=== PATIENT | female | born 1940 | race Caucasian/White ===

== ENCOUNTER → 2016-06-08 | Outpatient (CLI) | payer OTHER, BC ==
[~2016-06-08] MED LIST: BREO ELLIPTA 11 EACH IH; CALCITRIOL0.25 MCG PO; CEFTIN 250250 MG/52 PO; CENTRUM SILVER1 EAC4 PO; DOXYCYCLINE 10100 MG PO; FLAGYL500 MG PO; PROAIR HFA8.5 GM INH; TUMS PO; XALATAN2.5 ML OPHTHALMIC; XANAX 0.25 MG0.25 MG PO
[2016-06-08 09:02] LABS: CREATININE 0.7 mg/dL (0.6-1.0)
== END ==
LOC: CAT 08:03
PROVIDERS: Specialist
DX: N13.30 Unspecified hydronephrosis (principal); M62.89 Other specified disorders of muscle; R10.32 Left lower quadrant pain; R10.9 Unspecified abdominal pain; Z90.49 Acquired absence of other specified parts of digestive tract; Z90.710 Acquired absence of both cervix and uterus

== ENCOUNTER → 2016-06-22 | Outpatient (CLI) | payer OTHER, BC ==
[2016-06-22 17:19] LABS: ABG SAMPLE TYPE ARTERIAL; BE(vivo) -0.2 mmol/L (-2 to +3); HCO3 24.3 mmol/L (22.0-26.0); LACTATE 0.98 mmol/L (0.5-2.0); O2(CT) 18.2 mL/dL (15.0-23.0); O2Hb 94.2 % (92.0-98.0); PCO2 39.2 mmHg (35.0-45.0); PO2 76.2 mmHg (80.0-100.0); STICK SITE L.BRACHIAL; sO2 95.4 % (92.0-98.0); tCO2 25.5 mmol/L (24.0-30.0)
== END ==
LOC: RAD 17:10
PROVIDERS: Internal Medicine
DX: J44.9 Chronic obstructive pulmonary disease, unspecified (principal)

== ENCOUNTER → 2016-12-07 | Outpatient (CLI) | payer OTHER, BC | LOC: RAD 01:02 | DX: Z12.31 Encounter for screening mammogram for malignant neoplasm of breast (principal) ==

== ENCOUNTER → 2017-12-08 | Outpatient (CLI) | payer OTHER, BC | LOC: RAD 02:42 | DX: Z12.31 Encounter for screening mammogram for malignant neoplasm of breast (principal) ==

== ENCOUNTER → 2018-12-22 | Outpatient (CLI) | payer OTHER, BC | LOC: RAD 12:55 | DX: Z12.31 Encounter for screening mammogram for malignant neoplasm of breast (principal) ==

== ENCOUNTER 2020-11-04 21:50 | Inpatient (IN) | payer OTHER, BC ==
[~2020-11-04] VITALS: Ht 154.9 cm; Wt 59.9 kg
[2020-11-04 23:58] VITALS: BP 197/83
[2020-11-05 00:15] LABS: BASOPHILS 0.4 % (0.0-2.0); HEMOGLOBIN 12.4 gm/dL (12.0-15.0); MCH 31.8 pg (26.0-34.0); MCHC 33.6 g/dL (28.0-37.0); MCV 94.7 fL (80.0-100.0); MONOCYTES 7.3 % (1.0-8.0); PLATELET COUNT 218 thou/uL (150-400); POLYS 77.3 % (36.0-66.0); RBC 3.91 mil/uL (4.20-5.00); RDW 14.2 % (10.5-14.5); WBC 7.8 thou/uL (4.0-11.0)
[2020-11-05 00:31] LABS: CALCIUM 8.7 mg/dL (8.5-10.1); CREATININE 0.7 mg/dL (0.6-1.0)
[2020-11-05 00:41] LABS: ALBUMIN 3.4 g/dL (3.4-5.0); TOTAL BILIRUBIN 0.2 mg/dL (0.2-1.0); TOTAL PROTEIN 6.8 g/dL (6.4-8.2)
[2020-11-05] MEDS ORDERED: FUROSEMIDE 20 M20 M1 PO (10:22)
[2020-11-05] MEDS ORDERED: ALPRAZOLAM 0.0.25 M1 PO (10:22)
[2020-11-05] MEDS ORDERED: VALSARTAN160 MG PO (10:22)
[2020-11-05] MEDS ORDERED: LOW DOSE ASPIRI81 M1 PO (10:23)
[2020-11-05 11:46] LABS: URINE BILIRUBIN NEGATIVE (Negative); URINE BLOOD TRACE (Negative); URINE CLARITY CLEAR; URINE COLOR YELLOW; URINE GLUCOSE-RANDOM* TRACE (Negative); URINE KETONES TRACE (Negative); URINE LEUKOCYTES-REFLEX NEGATIVE (Negative); URINE NITRITE-REFLEX NEGATIVE (Negative); URINE PROTEIN (DIPSTICK) NEGATIVE (Negative); URINE UROBILINOGEN 0.2 E.U./dl (0.2-1.0)
--- NOTE | 2020-11-05 17:35 | NUR ---
SISTER- JENNY BUCKNER [phone]
[2020-11-06 05:09] LABS: ABSOLUTE NEUTROPHILS 7.1 thou/uL (1.4-8.2); BASOPHILS 0.2 % (0.0-2.0); HEMATOCRIT 30.3 % (37.0-47.0); MCH 32.2 pg (26.0-34.0); MCHC 33.9 g/dL (28.0-37.0); MCV 94.9 fL (80.0-100.0); MONOCYTES 1.7 % (1.0-8.0); PLATELET COUNT 196 thou/uL (150-400); POLYS 92.1 % (36.0-66.0); RDW 14.5 % (10.5-14.5); WBC 7.8 thou/uL (4.0-11.0)
[2020-11-06 05:26] LABS: CALCIUM 8.4 mg/dL (8.5-10.1); CREATININE 0.7 mg/dL (0.6-1.0); POTASSIUM 4.1 mmol/L (3.5-5.1)
[2020-11-06 05:42] LABS: HEMOGLOBIN 10.3 gm/dL (12.0-15.0)
[2020-11-06 09:16] VITALS: BP 143/68
--- NOTE | 2020-11-06 14:24 | NUR ---
DR. MIXON HERE TO EXAMINE PATIENT.
[2020-11-06 19:00] VITALS: BP 156/69
[2020-11-07 02:51] LABS: HEMATOCRIT 30.9 % (37.0-47.0); HEMOGLOBIN 10.5 gm/dL (12.0-15.0); MCH 32.1 pg (26.0-34.0); MCHC 34.1 g/dL (28.0-37.0); MCV 94.2 fL (80.0-100.0); RBC 3.28 mil/uL (4.20-5.00); RDW 14.1 % (10.5-14.5); WBC 5.9 thou/uL (4.0-11.0)
[2020-11-07 02:57] LABS: CALCIUM 8.4 mg/dL (8.5-10.1); CREATININE 0.5 mg/dL (0.6-1.0); POTASSIUM 3.5 mmol/L (3.5-5.1)
--- NOTE | 2020-11-07 04:06 | NUR ---
RECEIEVED PATIENT ALERT AND ORIENTEDX 4.ON NASAL CANNULA AT 2LPM, SATURATING WELL.WITH MEJIA CATHETER INTACT.ON ISOLATION FOR CDIFF.NOT IN PAIN OR DISTRESS.ADMISSION COMPLETED.FALL PREVENTION MEAUSRES MAINTAINED.ALL NEEDS ATTENDED.
[2020-11-07 05:16] VITALS: BP 136/73
[2020-11-07 08:11] VITALS: BP 169/74
[2020-11-07 12:52] VITALS: BP 148/91
[2020-11-07 16:00] VITALS: BP 161/79
--- NOTE | 2020-11-07 17:06 | NUR ---
Visit deferred dat tomorrow as pt in ISO for cdiff and getting breathing tx at this time. Pt lives alone in an apt close to the hospital. She does have a rwalker. Staff note sob with conversation and she is currently on o2 2lnc. PT/OT vonnie have been requested to see if pt needs h[place] referral [place] to reattempt visit with the pt in the am. Pt's on Shawn is her emergency contact and dpoa if needed. Her sister Génesis has also called in to check on her. Pt has recent hx of lung ca with rad tx only in May. Onc consult noted.
--- NOTE | 2020-11-07 19:36 | NUR ---
ENd shift note : Uneventful shift. Pt reported feeling anxious in the last hours of the shift. VSS, no concerning labs, no fall, afebrile. Continuing POC.
[2020-11-07 19:40] VITALS: BP 153/81
--- NOTE | 2020-11-08 02:48 | NUR ---
PT IS ALERT AND ORIENTED X4. LUNGS ARE COARSE. ON 2 LITERS NASAL CANULA. UP TO BEDSIDE COMMODE COMPLAINS OF ANXIETY AND BACK PAIN . MEDICATION GIVEN FOR BOTH PAIN AND ANXIETY PT REPORTS RELIEF.IN ISOLATION FOR C-DIFF. CALL LIGHT WITHIN REACH IF NEEDS ASSISTACE PER NURSING.
[2020-11-08 04:59] VITALS: BP 131/62
[2020-11-08 08:26] VITALS: BP 136/70
--- NOTE | 2020-11-08 11:05 | NUR ---
Therapy evals in progress this morning. Pt is open to [facility] [place]. Possible dc early next week pending her progress. Referrals faxed and called to both [facility] and . The pt lives at [facility] and wants to stay within their system. Cdiff+ ISO and still on o2. 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 Will follow.
--- NOTE | 2020-11-08 13:43 | NUR ---
BRANDIE faxed SNF referral to [facility] for review. Awaiting PT eval at this time. Received fax confirmation. No weekend discharge planned. Anticipating discharge on Wednesday. Following to assist as needed with discharge planning.
[2020-11-08 19:58] VITALS: BP 138/67
[2020-11-08 20:30] VITALS: BP 138/67
[2020-11-09 04:00] VITALS: BP 122/56
[2020-11-09 05:11] LABS: HEMOGLOBIN 10.8 gm/dL (12.0-15.0); MCHC 32.7 g/dL (28.0-37.0); MCV 94.7 fL (80.0-100.0); RBC 3.49 mil/uL (4.20-5.00); RDW 14.3 % (10.5-14.5); WBC 7.4 thou/uL (4.0-11.0)
[2020-11-09 05:28] LABS: CALCIUM 8.2 mg/dL (8.5-10.1); CREATININE 0.5 mg/dL (0.6-1.0)
[2020-11-09 05:30] LABS: POTASSIUM 2.9 mmol/L (3.5-5.1)
--- NOTE | 2020-11-09 08:05 | NUR ---
SLEPT PART OF SHIFT. MEDS FOR ANXIETY PRN WITH NOTED RELIEF. UP TO BATHROOM AD WINDY WITH WALKER AND STEADY GAIT. STATES INCONTINENT AT TIMES OF LOOSE STOOL AND URINE. NO PRESENT COMPLAINTS. WORKING ON GOALS AND PLAN OF CARE FOR NOC. CONTINUE TO ASSES.
[2020-11-09 08:08] VITALS: BP 148/77
[2020-11-09 11:26] VITALS: BP 148/78
[2020-11-09 15:17] LABS: MAGNESIUM 1.9 mg/dL (1.8-2.4); PHOSPHORUS 2.3 mg/dL (2.5-4.9)
[2020-11-09 15:37] LABS: POTASSIUM 4.3 mmol/L (3.5-5.1)
[2020-11-09 16:15] VITALS: BP 152/67
--- NOTE | 2020-11-09 18:33 | NUR ---
ASSESSMENT CHARTED. PT ALERT AND ORIENTED. VSS. PRN PAIN MED GIVEN FOR LOWER BACK PAIN WITH PARTIAL RELIEF. CONTACT PRECAUTION MAINTAINED. NO CONCERNS AT THIS TIME.
[2020-11-09 20:20] VITALS: BP 152/92
[2020-11-09 20:30] VITALS: BP 152/92
[2020-11-10 04:14] LABS: ABSOLUTE NEUTROPHILS 4.7 thou/uL (1.4-8.2); BASOPHILS 0.1 % (0.0-2.0); EOSINOPHILS 0.2 % (0.0-3.0); HEMATOCRIT 32.1 % (37.0-47.0); HEMOGLOBIN 10.9 gm/dL (12.0-15.0); LYMPHOCYTES 20.2 % (24.0-44.0); MCHC 34.1 g/dL (28.0-37.0); MONOCYTES 12.7 % (1.0-8.0); PLATELET COUNT 213 thou/uL (150-400); POLYS 66.8 % (36.0-66.0); RBC 3.42 mil/uL (4.20-5.00); RDW 14.2 % (10.5-14.5)
[2020-11-10 04:29] LABS: ALBUMIN 2.8 g/dL (3.4-5.0); CALCIUM 8.3 mg/dL (8.5-10.1); CREATININE 0.5 mg/dL (0.6-1.0); PHOSPHORUS 2.5 mg/dL (2.5-4.9); POTASSIUM 3.9 mmol/L (3.5-5.1); TOTAL BILIRUBIN 0.2 mg/dL (0.2-1.0); TOTAL PROTEIN 5.4 g/dL (6.4-8.2)
[2020-11-10 05:06] LABS: FOLIC ACID 11.2 ng/mL (8.6-58.9)
[2020-11-10 05:51] VITALS: BP 146/84
--- NOTE | 2020-11-10 07:12 | NUR ---
SLEPT MOST OF SHIFT, UP IN ROOM WITH WALKER AND GAIT STEADY. STATES BOWEL MOVEMENTS ARE GETTING BETTER. NO PRESENT COMPLAINTS THIS AM. WORKING ON GOALS AND PLAN OF CARE FOR NOC. CONTINUE TO ASSES CLOSELY.
[2020-11-10 07:56] VITALS: BP 151/87
[2020-11-10 12:15] VITALS: BP 152/82
[2020-11-10 16:20] VITALS: BP 144/68
[2020-11-10 19:06] VITALS: BP 154/87
[2020-11-11 04:06] LABS: GLYCOHEMOGLOBIN (HGB A1C) 6.5 % (4.8-5.6)
[2020-11-11 04:45] VITALS: BP 136/62
--- NOTE | 2020-11-11 07:41 | NUR ---
SLEPT MOST OF SHIFT. UP AD WINDY WITH WALKER WITH STEADY GAIT. NO PRESENT COMPLAINTS THIS AM. CONTINUE TO ASSES CLOSELY.
[2020-11-11 08:50] VITALS: BP 142/61
[2020-11-11 11:54] VITALS: BP 136/62
[2020-11-11] MEDS ORDERED: FOLIC ACID1 MG PO (12:39)
[2020-11-11] MEDS ORDERED: TESSALON PERLE100 MG PO (12:39)
[2020-11-11] MEDS ORDERED: VANCOMYCIN HCL125 MG PO (12:39)
[2020-11-11] MEDS ORDERED: IPRAT-ALBUT 0.5-3 ML INH (12:39)
[2020-11-11] MEDS ORDERED: PREDNISONE 20 M20 MG PO (12:39)
[2020-11-11] MEDS ORDERED: PEPCID20 MG PO (12:39)
[2020-11-11] MEDS ORDERED: LIDOPATCH1 EACH TRANSDERM (12:39)
[2020-11-11 12:40] VITALS: BP 143/66
[2020-11-11] MEDS ORDERED: NEBULIZER MISCELL (12:47)
[2020-11-11 13:25] VITALS: BP 136/62
--- NOTE | 2020-11-11 14:37 | NUR ---
Patient to dc home with recommendation of HH care. Sp with patient at bedside. She is interested in [facility] care. Faxed referral and orders. They are good with start of care. Called and left message with Rupinder who oversees independent living. Gave phone number but no return call. patient reports she alerted to [facility] that she was dc and planned today. She alerted she needed her meals delivered. Patient with need for nebulizer which was arranged via [facility]. No further needs
--- NOTE | 2020-11-11 16:27 | NUR ---
ASSUMED CARE SHIFT CHANGE. VSS. DENIES PAIN O2 SATS WNL DENIES SOB UP WITH WALKER IN ROOM INDEPENDENTLY TO WELL. BM FORMING, NOT LOOSE. DC ORDERS TO [facility]. NEBULIZER DELIVERED HERE PER VONNIE. FAMILY UPDATED REGARDING POC AND DC. PT MEDS RETRIEVED FROM PHARMACY AND GIVEN TO PT. IV REMOVED TELE REMOVED. PT LEFT UNIT WITH ALL BELONGINGS.
== END 2020-11-11 16:30 | disposition home health service (06) | DRG 371 ==
LOC: ER 21:50 → 2N 11-05 06:35 → EROBS 11-05 06:35 → 2N 11-06 18:42
PROVIDERS: Emergency Medicine; Internal Medicine; Nurse Practitioner; ADMIT Hospitalist; ATTEND Hospitalist
DX: A04.72 Enterocolitis due to Clostridium difficile, not specified as recurrent (principal); J96.21 Acute and chronic respiratory failure with hypoxia; R65.11 Systemic inflammatory response syndrome (SIRS) of non-infectious origin with acute organ dysfunction; J44.1 Chronic obstructive pulmonary disease with (acute) exacerbation; C34.90 Malignant neoplasm of unspecified part of unspecified bronchus or lung; R60.9 Edema, unspecified; F41.9 Anxiety disorder, unspecified; Z79.899 Other long term (current) drug therapy; Z20.822 Contact with and (suspected) exposure to COVID-19; Z92.3 Personal history of irradiation; E87.6 Hypokalemia; D64.9 Anemia, unspecified; I10 Essential (primary) hypertension; Z88.0 Allergy status to penicillin; Z88.2 Allergy status to sulfonamides; Z88.7 Allergy status to serum and vaccine; Z88.8 Allergy status to other drugs, medicaments and biological substances; Z90.49 Acquired absence of other specified parts of digestive tract; K21.9 Gastro-esophageal reflux disease without esophagitis; Z87.891 Personal history of nicotine dependence; Z90.710 Acquired absence of both cervix and uterus; F32.9 Major depressive disorder, single episode, unspecified; R13.19 Other dysphagia
CPT/HCPCS: 10081